=== PATIENT | male | born 1950 | race Caucasian/White ===

== ENCOUNTER 2020-09-28 15:53 | Observation (INO) | payer OTHER, SELFPAY ==
[2020-09-28] VITALS (9 sets, daily range): BP systolic 137–194; BP diastolic 73–101; PULSE 75–89; RESP 16–20; TEMP 36.8–37.5; O2SAT 93–99; BMI 26.3
[2020-09-28 17:28] LABS: Add Manual Diff / Slide Review NO; Basophils Absolute Auto 0 /uL (0-100); Basophils Percent Auto 0.2 % (0-2); Eosinophils Absolute Auto 0 /uL (0-450); Hematocrit 44.9 % (41-53); Lymphocytes Absolute Auto 800 /uL (1100-4500); Lymphocytes Percent Auto 5.1 % (25-40); Mean Corpuscular HGB Conc 33.5 % (30-36); Mean Corpuscular Hemoglobin 29.2 PG (26-34); Mean Corpuscular Volume 87.3 fL (80-100); Monocytes Absolute Auto 1500 /uL (0-900); Monocytes Percent Auto 9.4 % (3-14); Neutrophils Absolute Auto 13700 /uL (1500-7000); Neutrophils Percent Auto 85.3 % (50-75); Platelet Count 283 X10^3/uL (150-400); Red Blood Cell Count 5.14 X10^6/uL (4.5-5.9); Red Cell Distribution Width 13.3 % (11.6-14.8); White Blood Cell Count 16.1 X10^3/uL (4.5-11.0)
[2020-09-28 17:39] LABS: Alanine Aminotransferase 26 IU/L (<50); Albumin 4.6 g/dL (3.5-5.0); Albumin Globulin Ratio 1.3 (1.0-2.8); Alkaline Phosphatase 78 U/L (38-126); Aspartate Aminotransferase 32 IU/L (17-59); BUN Creatinine Ratio 21.9 (6-22); Bilirubin Total 0.8 mg/dL (0.2-1.3); Blood Urea Nitrogen 25 mg/dL (9-20); Calcium 9.7 mg/dL (8.4-10.2); Carbon Dioxide 28 mmol/L (22-32); Chloride 99 mmol/L (98-107); Estimated Glomerular Filt Rate > 60.0 mL/min (>60); Globulin 3.6 g/dL (1.7-4.1); Glucose 112 mg/dL (80-110); HEMOLYSIS 18 (0-50); Lipase 46 U/L (23-300); Potassium 3.9 mmol/L (3.4-5.1); Sodium 138 mmol/L (137-145); Total Protein 8.2 g/dL (6.3-8.2)
[2020-09-28 17:56] LABS: Procalcitonin 0.16 ng/mL (<0.5)
--- NOTE | 2020-09-28 18:47 | PC.NURSE ---
reports chronic ear wax impaction. usually resolves with hydrogen peroxide. tried this time with no success and awoke the next morning with painful left side of face and ear.
--- NOTE | 2020-09-28 18:57 | ED.SKABFB ---
HPI - Skin/Abscess/Foreign Bdy General Chief complaint: Skin/Abscess/Foreign Body Stated complaint: from [facility]/ facial cellulitis Time Seen by Provider: 09/28/20 18:04 Source: patient Mode of arrival: Ambulatory History of Present Illness HPI narrative: 70-year-old male former smoker with history of hyperlipidemia presents from the walk-in clinic for evaluation of a few days of increasing left-sided facial pain, redness, swelling and subjective fever. He states that his symptoms have been worsening over the past few days. He had some discomfort in his left ear and admits that he had been taking and scratching at it and then had it washed out in the clinic. In the aftermath he developed pain, swelling and redness. He has no difficulty with swallowing or breathing. He feels generally unwell and has nausea but denies any vomiting. He states that though he has had no drainage from his left ear he feels like it is plugged and is unable to hear out of it Related Data Home Medications Medication Instructions Recorded Confirmed acyclovir 400 mg tablet 400 mg PO BID 09/28/20 09/28/20 atorvastatin 20 mg tablet 20 mg PO DAILY 09/28/20 09/28/20 carisoprodol 350 mg tablet 350 mg PO BID tab 09/28/20 09/28/20 desonide 0.05 % topical cream 1 applic TOPICAL BID 09/28/20 09/28/20 duloxetine 60 mg capsule,delayed 60 mg PO DAILY 09/28/20 09/28/20 release gabapentin 300 mg capsule 900 mg PO BID cap 09/28/20 09/28/20 ibuprofen 800 mg tablet 800 mg PO Q8H 09/28/20 09/28/20 lisinopril 10 mg tablet 10 mg PO DAILY 09/28/20 09/28/20 oxycodone-acetaminophen 5 mg-325 1 tab PO Q8H PRN 09/28/20 09/28/20 mg tablet sildenafil (pulm.hypertension) 20 See Rx Instructions PO .prn tab 09/28/20 09/28/20 mg tablet Allergies Allergy/AdvReac Type Severity Reaction Status Date / Time Penicillins Allergy Intermediate Swelling Verified 09/28/20 16:01 of Lip/Tongue/Throat Review of Systems Review of Systems Narrative: GENERAL: See HP HEENT: See HPI RESPIRATORY: Denies dyspnea, cough, wheezing, hemoptysis, sputum. CARDIOVASCULAR: Denies chest pain, palpitations, orthopnea, edema, GASTROINTESTINAL: Denies nausea, vomiting, abdominal pain, diarrhea, constipation, melena. : Denies dysuria, frequency, incontinence, hematuria, urinary retention. MUSCULOSKELETAL: denies weakness, joint pain, or bony pain SKIN: See HPI NEUROLOGIC: Denies weakness, headache, numbness, change in speech, confusion, seizures, incoordination. PSYCHIATRIC: No concerning psychosocial issues. 12 point review of systems is negative except for those stated above Patient History Medical History Chronic low back pain HSV (herpes simplex virus) infection Hyperlipidemia Pulmonary hypertension Surgical History History of lumbar fusion History of lumbar laminectomy Family History Mother Cancer Father Congestive heart failure Social History household members: spouse Smoking Status: Former smoker alcohol intake: former Smoking Status: Former smoker Substance Use Type: marijuana Exam Narrative Exam Narrative: GENERAL: [70] year old patient appears stated age. Well-developed patient, in mild distress. HEAD: Atraumatic. Normocephalic. EYES: Pupils equal round and reactive. Extraocular motions intact. No scleral icterus. No injection or drainage. ENT: Nose without bleeding, purulent drainage. Throat without erythema, tonsillar hypertrophy or exudate. Airway patent. Left external auditory canal edematous, erythematous, but without drainage. External ear notably swollen, tender and edematous. No fluctuance or drainage noted much of the left side of his face demonstrates erythema and swelling, there is tenderness overlying the mastoid NECK: Trachea midline. Non tender CARDIOVASCULAR: Regular rate and rhythm without murmurs, gallops, or rubs. RESPIRATORY: Clear to auscultation. Breath sounds equal bilaterally. No wheezes, rales, or rhonchi. GASTROINTESTINAL: Abdomen soft, non-tender, nondistended. EXTREMITIES: No edema or joint tenderness. BACK: Nontender without deformity or crepitance. No flank tenderness. NEURO: AOx3. SKIN: No rash or erythema of visible areas Initial Vital Signs Initial Vital Signs: Vital Signs Temperature 98.3 F 09/28/20 15:57 Pulse Rate 89 09/28/20 15:57 Respiratory Rate 16 09/28/20 15:57 Pulse Oximetry 98 09/28/20 15:57 Course Orders Ordered: ED Orders 09/28/20 19:33 COVID19 - ADMIT (FERMENTATION MANAGER swab/PCR) Stat 09/28/20 21:08 Education, smoking cessation ONGOING 09/29/20 05:00 Basic Metabolic Panel DAILY Complete Blood Count AUTO DIFF DAILY 09/30/20 05:00 Basic Metabolic Panel DAILY Complete Blood Count AUTO DIFF DAILY 10/01/20 05:00 Basic Metabolic Panel DAILY Complete Blood Count AUTO DIFF DAILY Acetaminophen (Acetaminophen 325 Mg Tablet) 650 mg PO Q6HR PRN PRN Reason: Fever/Mild Pain (1-3) Acyclovir (Acyclovir 400 Mg Tablet) 400 mg PO BID [facility] Last Admin: 09/29/20 00:18 Dose: 400 mg Documented by: ALON Al Hydrox/Mg Hydrox/Simethicone (Mag Hydrox/Alum/Simeth 30 Ml Udc) 30 ml PO Q6HR PRN PRN Reason: Dyspepsia Atorvastatin Calcium (Atorvastatin 20 Mg Tablet) 20 mg PO DAILY [facility] Carisoprodol (Carisoprodol 350 Mg Tablet) 350 mg PO BID [facility] Last Admin: 09/29/20 00:19 Dose: 350 mg Documented by: ALON Duloxetine HCl (Duloxetine 30 Mg Capsule) 60 mg PO DAILY [facility] Enoxaparin Sodium (Enoxaparin 40 Mg/0.4 Ml Syringe) 40 mg SUBCUT DAILY [facility] Gabapentin (Gabapentin 300 Mg Capsule) 900 mg PO BID [facility] Last Admin: 09/29/20 00:18 Dose: 900 mg Documented by: ALON Lactated Ringer's (Lactated Ringers) 1,000 mls @ 125 mls/hr IV CONT [facility] Last Admin: 09/28/20 22:18 Dose: 125 mls/hr Documented by: KELVIN Ceftriaxone Sodium 1,000 mg/ (Sodium Chloride) 100 mls @ 200 mls/hr IV Q24H [facility] Ketorolac Tromethamine (Ketorolac 30 Mg/Ml Vial) 15 mg IV Q6HR PRN PRN Reason: Pain, Severe (7-10) Stop: 10/03/20 21:10 Lisinopril (Lisinopril 10 Mg Tablet) 10 mg PO DAILY [facility] Naloxone HCl (Naloxone 0.4 Mg/Ml Vial) 0.2 mg IV Q2MIN PRN PRN Reason: Opiate Reversal Ondansetron HCl (Ondansetron 4 Mg/2 Ml Inj) 4 mg IV Q8HR PRN PRN Reason: Nausea And Vomiting Oxycodone HCl (Oxycodone Ir 5 Mg Tablet) 5 mg PO Q6HR PRN PRN Reason: Pain, Moderate (4-6) Last Admin: 09/28/20 22:40 Dose: 5 mg Documented by: KELVIN Oxycodone/Acetaminophen (Oxycodone/Acetaminophen 5/325 Tablet) 1 tab PO Q8H PRN PRN Reason: Pain (Scale Score 4-6) Prednisone (Prednisone 20 Mg Tablet) 40 mg PO DAILY [facility] Stop: 10/02/20 08:59 Sildenafil Citrate (Sildenafil 20 Mg Tablet) 20 mg PO BID [facility] Last Admin: 09/29/20 00:24 Dose: Not Given Documented by: LMILLER Discontinued Medications Hydromorphone HCl (Hydromorphone 1 Mg Inj) 1 mg IV NOW ONE Stop: 09/28/20 21:16 Last Admin: 09/28/20 21:26 Dose: 1 mg Documented by: CTR.LUL Aztreonam 2 gm/ Dextrose 100 mls @ 100 mls/hr IV NOW ONE Stop: 09/28/20 19:09 Last Infusion: 09/28/20 21:06 Dose: 0 mls/hr Documented by: [email or web address] Admin: 09/28/20 19:55 Dose: 100 mls/hr Documented by: CTR.[email or web address] Clindamycin Phosphate (Cleocin) 600 mg in 50 mls @ 50 mls/hr IV Q8H [facility] Last Admin: 09/28/20 22:50 Dose: Not Given Documented by: LVRHONDA Ceftriaxone Sodium 2,000 mg/ (Sodium Chloride) 100 mls @ 200 mls/hr IV NOW ONE Stop: 09/28/20 22:12 Last Admin: 09/28/20 22:44 Dose: 200 mls/hr Documented by: KELVIN Ketorolac Tromethamine (Ketorolac 30 Mg/Ml Vial) 30 mg IV Q6HR PRN PRN Reason: Pain, Severe (7-10) Stop: 10/03/20 21:10 Methylprednisolone (Methylprednisolone 125 Mg/2 Ml Vial) 40 mg IV NOW ONE Stop: 09/28/20 21:12 Last Admin: 09/28/20 22:19 Dose: 40 mg Documented by: KELVIN Tesfaye Consultation #1: Discussed with on-call [facility], they would recommend admission with IV antibiotics, hold off on imaging for now, if the patient does not demonstrate improvement within 24 hours they request formal inpatient consultation and they will see the patient for further treatment and imaging recommendations. Vital Signs Vital signs: Vital Signs - 8 hr 09/28/20 19:33 09/28/20 19:36 09/28/20 20:00 Pulse Rate 75 75 75 Blood Pressure 160/101 H Pulse Oximetry 99 97 98 09/28/20 20:01 09/28/20 20:30 09/28/20 21:00 Pulse Rate 79 76 78 Blood Pressure 137/73 Pulse Oximetry 97 96 95 MDM - Skin/Abscess/Foreign Bdy Lab Data Result diagrams: 09/28/20 17:02 09/28/20 17:02 Labs: Lab Results 09/28/20 09/28/20 09/28/20 Range/Units 17:00 17:02 17:02 WBC 16.1 H (4.5-11.0) X10^3/uL RBC 5.14 (4.5-5.9) X10^6/uL Hgb 15.0 (13.5-17.5) g/dL Hct 44.9 (41-53) % MCV 87.3 (80-100) fL MCH 29.2 (26-34) PG MCHC 33.5 (30-36) % RDW 13.3 (11.6-14.8) % Plt Count 283 (150-400) X10^3/uL Neut % (Auto) 85.3 H (50-75) % Lymph % (Auto) 5.1 L (25-40) % [place] % (Auto) 9.4 (3-14) % Eos % (Auto) 0.0 L (2-4) % Baso % (Auto) 0.2 (0-2) % Neut # (Auto) 86896 H (2522-2399) /uL Lymph # (Auto) 800 L (5838-4511) /uL [place] # (Auto) 1500 H (0-900) /uL Eos # (Auto) 0 (0-450) /uL Baso # (Auto) 0 (0-100) /uL Sodium 138 (137-145) mmol/L Potassium 3.9 (3.4-5.1) mmol/L Chloride 99 (98-107) mmol/L Carbon Dioxide 28 (22-32) mmol/L BUN 25 H (9-20) mg/dL Creatinine 1.14 (0.66-1.25) mg/dL Estimated GFR > 60.0 (>60) mL/min BUN/Creatinine Ratio 21.9 (6-22) Glucose 112 H (80-110) mg/dL Lactate (0.7-2.1) mmol/L Calcium 9.7 (8.4-10.2) mg/dL Magnesium 2.0 (1.6-2.3) mg/dL Total Bilirubin 0.8 (0.2-1.3) mg/dL AST 32 (17-59) IU/L ALT 26 (<50) IU/L Alkaline Phosphatase 78 (38-126) U/L Total Protein 8.2 (6.3-8.2) g/dL Albumin 4.6 (3.5-5.0) g/dL Globulin 3.6 (1.7-4.1) g/dL Albumin/Globulin Ratio 1.3 (1.0-2.8) Lipase 46 (23-300) U/L Procalcitonin 0.16 (<0.5) ng/mL SARS-CoV-2 (PCR) (Negative) 09/28/20 09/28/20 Range/Units 17:02 19:33 WBC (4.5-11.0) X10^3/uL RBC (4.5-5.9) X10^6/uL Hgb (13.5-17.5) g/dL Hct (41-53) % MCV (80-100) fL MCH (26-34) PG MCHC (30-36) % RDW (11.6-14.8) % Plt Count (150-400) X10^3/uL Neut % (Auto) (50-75) % Lymph % (Auto) (25-40) % [place] % (Auto) (3-14) % Eos % (Auto) (2-4) % Baso % (Auto) (0-2) % Neut # (Auto) (0893-3597) /uL Lymph # (Auto) (4470-5945) /uL [place] # (Auto) (0-900) /uL Eos # (Auto) (0-450) /uL Baso # (Auto) (0-100) /uL Sodium (137-145) mmol/L Potassium (3.4-5.1) mmol/L Chloride (98-107) mmol/L Carbon Dioxide (22-32) mmol/L BUN (9-20) mg/dL Creatinine (0.66-1.25) mg/dL Estimated GFR (>60) mL/min BUN/Creatinine Ratio (6-22) Glucose (80-110) mg/dL Lactate 2.0 (0.7-2.1) mmol/L Calcium (8.4-10.2) mg/dL Magnesium (1.6-2.3) mg/dL Total Bilirubin (0.2-1.3) mg/dL AST (17-59) IU/L ALT (<50) IU/L Alkaline Phosphatase (38-126) U/L Total Protein (6.3-8.2) g/dL Albumin (3.5-5.0) g/dL Globulin (1.7-4.1) g/dL Albumin/Globulin Ratio (1.0-2.8) Lipase (23-300) U/L Procalcitonin (<0.5) ng/mL SARS-CoV-2 (PCR) Negative (Negative) Discharge Plan Departure Patient Disposition: Admitted as Observation Clinical Impression: Cellulitis of face, Otitis externa Admit Date/Time: 09/28/20 21:16 Admit Provider: Alicia Kenney
[2020-09-28] MEDS: AZTREONAM 2 GM in DEXTROSE 5 % IN WATER 100 ML IV (19:55)
[2020-09-28 20:52] LABS: COVID19 - ADMIT (NP swab/PCR) Negative (Negative)
[2020-09-28] MEDS: HYDROMORPHONE 1 MG INJ IV (21:26)
--- NOTE | 2020-09-28 21:53 | PM.HP.1 ---
History of Present Illness History of Present Illness Date Patient Seen: 09/28/20 Time Patient Seen: 21:54 Chief complaint: from [facility]/ facial cellulitis Narrative: Patient is a 70-year-old male Richard Bee presented to the walk-in clinic who inturn was sent to the ED for further evaluation of 48hrs of increasing redness, pain, and edema of left side of face, mastoid, and ear. Patient states that he spent all of send a icing his face and taking ibuprofen Patient denies upon admit while at rest in bed chest pain, shortness of breath, difficulty swallowing, fever, body aches, chills, pain behind the eyes, pain with eye movement, changes in vision, dizziness, cough, nasal drainage, recent illness, injury, trauma, no urinary or bowel concerns. Patient is a very physically fit male, with a history of hyperlipidemia, pulmonary hypertension, HSV II, peripheral neuropathy, and chronic low back pain. Patient's vitals upon admit patient had no temp at 98.3?, but was hypertensive with a BP 160/101, HR 75, RR 16, O2 saturation 97% on room air. Patient had a mild bump in his WBC 16.1, neutrophils 13,700. Patient's chemistries were primarily unremarkable and within normal limits, lactic acid, and procalcitonin negative. ENT was consulted in the emergency room by Dr. Tamayo, it was advised that patient be admitted for IV antibiotics fluids and anti-inflammatories and that if patient's condition is worsening and not improving after 24 hours of treatment to obtain and mastoid imaging an order ENT consult. Patient admitted for left sided facial/mastoid cellulitis/abscess. 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 Safety & Behavioral: Feels Safe in Current Yes Environment Been Physically Hurt or No Threatened By a Person Suicidal Ideation Description None Suicide Plan Description No Plan Tobacco & Substance use: Smoking Status Former smoker smoked for 20 years, quit 30 years ago alcohol intake former history of alcohol abuse quit 30 years ago Substance Use Type ICB oil only for pain Meds Home Medications and Allergies Home Medications Medication Instructions Recorded Confirmed Type acyclovir 400 mg tablet 400 mg PO BID 09/28/20 09/28/20 History atorvastatin 20 mg tablet 20 mg PO DAILY 09/28/20 09/28/20 History carisoprodol 350 mg tablet 350 mg PO BID tab 09/28/20 09/28/20 History desonide 0.05 % topical cream 1 applic TOPICAL BID 09/28/20 09/28/20 History duloxetine 60 mg capsule,delayed 60 mg PO DAILY 09/28/20 09/28/20 History release gabapentin 300 mg capsule 900 mg PO BID cap 09/28/20 09/28/20 History ibuprofen 800 mg tablet 800 mg PO Q8H 09/28/20 09/28/20 History lisinopril 10 mg tablet 10 mg PO DAILY 09/28/20 09/28/20 History oxycodone-acetaminophen 5 mg-325 1 tab PO Q8H PRN 09/28/20 09/28/20 History mg tablet sildenafil (pulm.hypertension) 20 See Rx Instructions PO .prn tab 09/28/20 09/28/20 History mg tablet Allergies Allergy/AdvReac Type Severity Reaction Status Date / Time Penicillins Allergy Intermediate Swelling Verified 09/28/20 16:01 of Lip/Tongue/Throat Review of Systems Review of Systems Narrative: All 12 point systems reviewed with the patient and are negative except otherwise documented. Exam Vital Signs (past 8 hours): - 09/28/20 15:57 09/28/20 19:33 09/28/20 19:36 Temperature 98.3 F Pulse Rate 89 75 75 Respiratory Rate 16 Blood Pressure 160/101 H Pulse Oximetry 98 99 97 09/28/20 20:00 09/28/20 20:01 09/28/20 20:30 Temperature Pulse Rate 75 79 76 Respiratory Rate Blood Pressure 137/73 Pulse Oximetry 98 97 96 09/28/20 21:00 Temperature Pulse Rate 78 Respiratory Rate Blood Pressure Pulse Oximetry 95 Oxygen Delivery Method Room Air Narrative Exam Narrative: General: Patient is a well-developed, well-nourished fit male who appears younger than stated age in no distress at this time. HEENT: Normocephalic, atraumatic, extraocular muscles intact, oral pharynx is clear, airway protected, and mucous membranes are moist. Left side of face and parietal scalp mild inflammation with gross erythema, warm to touch, cheek, ear, mastoid with marked greater erythema, tenderness, and mild edema. Positive preauricular greater over post auricular lymphadema & tendereness. Unable to visualize left canal/TM to do swelling. Ears: external ear abnormal (L ear) pain with movement of external ear Neck is supple and symmetric, trachea is midline,no thyroid enlargement,no masses palpated. Mild bilateral JVD Chest: Normal AP diameter and contour without kyphoscoliosis, no nasal flaring, retractions, or tachypneic labored Lungs: Auscultation of all lung henao are clear without adventitious sounds, wheezes, rhonchi, or rales. Cardio: S1 & S2 with regular rate and rhythm without murmur, rubs, or gallops, no carotid bruit, no cardiac pulsations present. Abdomen: Soft nontender, negative for organomegaly, or masses. Bowel sounds are present in all 4 quadrants without guarding or rebound, no CVA tenderness. Musculoskeletal: Muscle strength and tone are equal within normal limits, no deformity, crepitus, effusions, cyanosis, clubbing or edema present. Full range of motion intact radial and pedal pulses are normal. Skin: Warm dry and intact without rashes, ulcerations or petechiae. with the exception of above Please refer to HEENT Neuro: Alert and orientated x3, strength is +5/5 in all extremities, sensation to touch intact, no gross deficits noted of cranial nerves. Psych: Patient has a well-kept appearance, appropriate affect, mental status attitude thought context and judgment are appropriate for age. Objective Labs Result Diagrams: 09/28/20 17:02 09/28/20 17:02 Labs: Laboratory Results - last 24 hr 09/28/20 09/28/20 09/28/20 17:00 17:02 17:02 WBC 16.1 H RBC 5.14 Hgb 15.0 Hct 44.9 MCV 87.3 MCH 29.2 MCHC 33.5 RDW 13.3 Plt Count 283 Neut % (Auto) 85.3 H Lymph % (Auto) 5.1 L [place] % (Auto) 9.4 Eos % (Auto) 0.0 L Baso % (Auto) 0.2 Neut # (Auto) 04137 H Lymph # (Auto) 800 L [place] # (Auto) 1500 H Eos # (Auto) 0 Baso # (Auto) 0 Sodium 138 Potassium 3.9 Chloride 99 Carbon Dioxide 28 BUN 25 H Creatinine 1.14 Estimated GFR > 60.0 BUN/Creatinine Ratio 21.9 Glucose 112 H Lactate Calcium 9.7 Magnesium 2.0 Total Bilirubin 0.8 AST 32 ALT 26 Alkaline Phosphatase 78 Total Protein 8.2 Albumin 4.6 Globulin 3.6 Albumin/Globulin Ratio 1.3 Lipase 46 Procalcitonin 0.16 SARS-CoV-2 (PCR) 09/28/20 09/28/20 17:02 19:33 WBC RBC Hgb Hct MCV MCH MCHC RDW Plt Count Neut % (Auto) Lymph % (Auto) [place] % (Auto) Eos % (Auto) Baso % (Auto) Neut # (Auto) Lymph # (Auto) [place] # (Auto) Eos # (Auto) Baso # (Auto) Sodium Potassium Chloride Carbon Dioxide BUN Creatinine Estimated GFR BUN/Creatinine Ratio Glucose Lactate 2.0 Calcium Magnesium Total Bilirubin AST ALT Alkaline Phosphatase Total Protein Albumin Globulin Albumin/Globulin Ratio Lipase Procalcitonin SARS-CoV-2 (PCR) Negative Assessment & Plan Assessment & Plan narrative: Patient is a 70-year-old male Richard pritesh [facility] presented with a few days of increasing redness, swelling, pain, and edema of left side of face, mastoid, and ear. Patient has a history of hyperlipidemia, pulmonary hypertension, Parkinson's, HSV, peripheral neuropathy. Patient admitted for left sided facial/mastoid cellulitis/abscess. 1. Left-sided facial cellulitis/abscess/mastoiditis/left otitis media/externa, acute, present on admission-stable, airway protected -rule out otitis media with effusion, bullous myringits, external otitis, herpes zoster, deep space head/neck infection, mastoiditis, dental infection. -possibly an exacerbation of otitis media with effusion with otitis externa- due to the greater left pre-auricular lymphedema. -monitor for hyponatremia elevated CPK or AST -BP 160/101, HR 75, RR 16, O2 saturation 97% on room air. WBC 16.1, neutrophils 13,700. lactic acid,procalcitonin negative. -ENT was consulted in the emergency room by Dr. Tamayo, it was advised that patient be admitted for IV antibiotics fluids and anti-inflammatories and that if patient's condition is worsening and not improving after 24 hours of treatment: obtain mastoid imaging an order ENT consult. Patient admitted for IV antibiotic in fluid treatment due to increase risk of airway compromise, acute respiratory distress/respiratory arrest. -Sofa score:0 -patient for observation, vital signs q.4 hours, intake and output monitored Q shift, weight measure daily, diet: Regular, IV fluids: LR at 125 cc/hour. -MEDS:Aztrenonam in ED due to PCN allergy, patient does not have a cephalosporin or beta-lactam allergy patient placed on Rocephin 2 g now followed by 1 g Q 24 hours -bedside swallow, aspiration precautions, monitor airway status, apply ice as needed for inflammation &/or comfort -ordered 40 mg IV Solu-Medrol now followed by 40 mg oral prednisone q.day x3 days -manage patient's swelling with anti-inflammatories, pain management, and antiemetics for nausea -daily labs ordered CBC, CMP, PT INR. Procalcitonin, ESR, CRP in Qam 2. Pulmonary hypertension, acute on chronic, present on admission Continue patient's lisinopril, sildenafil 3. Chronic low back pain, chronic, present on admission -continue the patient's Carisoprodol, duloxetine, gabepentin 4. HSV II genital, chronic, present on admission -Continue patient's acyclovir Code status: DNR Surrogate decisionmaker: Gila Bee COVID PCR: Negative DVT/VTE prophylaxis: Lovenox 40 with SCDs Estimated length of stay: Less than 2 midnights I have utilized all available immediate resources to obtain, update, or review the patient's current medications. I confirmed that the patient's advanced care plan is present, Code status is documented and/or surrogate decision maker is listed in the patient's medical record. Scores GCS Teressa coma scale eye opening: Spontaneous [place] coma scale verbal response: Orientated [place] coma scale motor response: Obey commands [place] coma scale total score: 15 SOFA PaO2/FIO2: >=400 mmHg Platelets: >= 150 Bilirubin: < 1.2 mg/dL Hypotension: MAP >= 70 mmHg [place] Coma Scale: 15 Renal: < 1.2 mg/dL SOFA Score: 0 Wells' Criteria for PE Clinical signs and symptoms of DVT: No PE is #1 Dx or equally likely: No Heart rate > 100: No Immobilization at least 3 days or surg in previous 4 weeks: No History of PE or DVT: No Hemoptysis: No Malignancy w/Treatment within 6 months or palliative: No Wells' PE Score total: 0 Quality VTE Deep Vein Thrombosis/Pulmonary Embolism Present on Admission: No MIPS - Admit I confirm the patient?s Advance Care Plan is present, Code status is documented, Surrogate decision maker is in patient?s record [If Yes, STOP here]: Yes
[2020-09-28] MEDS: LACTATED RINGERS 1,000 ML 125 ML IV (22:18)
[2020-09-28] MEDS: methylPREDNISolone 125 MG/2 ML VIAL 40 MG IV (22:19)
[2020-09-28] MEDS: OXYCODONE IR 5 MG TABLET PO (22:40)
[2020-09-28] MEDS: cefTRIAXone 2,000 MG in SODIUM CHLORIDE 0.9% 100 ML 200 ML IV (22:44)
[2020-09-29] VITALS (7 sets, daily range): BP systolic 131–149; BP diastolic 66–79; PULSE 70–74; RESP 16–18; TEMP 36.6–37.5; O2SAT 94–97
[2020-09-29] MEDS: ACYCLOVIR 400 MG TABLET PO (00:18)
[2020-09-29] MEDS: GABAPENTIN 300 MG CAPSULE 900 MG PO ×2 (00:18→09:59)
[2020-09-29] MEDS: carisoprodoL 350 MG TABLET PO ×2 (00:19→09:54)
[2020-09-29 06:00] LABS: Add Manual Diff / Slide Review NO; Basophils Absolute Auto 0 /uL (0-100); Basophils Percent Auto 0.1 % (0-2); Eosinophils Absolute Auto 0 /uL (0-450); Hematocrit 40.3 % (41-53); Hemoglobin 13.4 g/dL (13.5-17.5); Lymphocytes Absolute Auto 500 /uL (1100-4500); Lymphocytes Percent Auto 3.8 % (25-40); Mean Corpuscular HGB Conc 33.2 % (30-36); Mean Corpuscular Hemoglobin 28.6 PG (26-34); Mean Corpuscular Volume 86.2 fL (80-100); Monocytes Absolute Auto 200 /uL (0-900); Monocytes Percent Auto 1.6 % (3-14); Neutrophils Absolute Auto 12600 /uL (1500-7000); Neutrophils Percent Auto 94.5 % (50-75); Platelet Count 269 X10^3/uL (150-400); Red Blood Cell Count 4.67 X10^6/uL (4.5-5.9); White Blood Cell Count 13.3 X10^3/uL (4.5-11.0)
[2020-09-29] MEDS: LACTATED RINGERS 1,000 ML 125 ML IV (06:12)
[2020-09-29] MEDS: OXYCODONE IR 5 MG TABLET PO (06:16)
[2020-09-29 06:17] LABS: BUN Creatinine Ratio 25.9 (6-22); Blood Urea Nitrogen 21 mg/dL (9-20); Calcium 9.1 mg/dL (8.4-10.2); Carbon Dioxide 27 mmol/L (22-32); Chloride 99 mmol/L (98-107); Estimated Glomerular Filt Rate > 60.0 mL/min (>60); Glucose 147 mg/dL (80-110); HEMOLYSIS < 15 (0-50); Potassium 4.2 mmol/L (3.4-5.1); Sodium 135 mmol/L (137-145)
[2020-09-29 06:21] LABS: Erythrocyte Sedimentation Rate 24 MM/HR (0-15)
[2020-09-29 06:29] LABS: Procalcitonin 0.14 ng/mL (<0.5)
[2020-09-29 06:58] LABS: C-Reactive Protein Quant 14.8 mg/dL (<1.0)
[2020-09-29] MEDS: ENOXAPARIN 40 MG/0.4 ML SYRINGE SUBCUT (09:52)
[2020-09-29] MEDS: predniSONE 20 MG TABLET 40 MG PO (09:53)
[2020-09-29] MEDS: ATORVASTATIN 20 MG TABLET PO (09:53)
[2020-09-29] MEDS: DULOXETINE 30 MG CAPSULE 60 MG PO (09:53)
[2020-09-29] MEDS: KETOROLAC 30 MG/ML VIAL 15 MG IV (10:17)
[2020-09-29] MEDS: SILDENAFIL 20 MG TABLET PO (10:17)
--- NOTE | 2020-09-29 12:24 | CM.DANOTE ---
DCP/Assessment: Reviewed chart. Patient is a 70yr old male admitted to [facility] with facial cellulitis. No PCP listed. Primary payor is 1)[facility]. Met with patient and spouse explained CM/SW role. Patient denies any d/c planning needs at this time. Patient seen by provider this AM and it is anticipated that he will d/c once IV abx completed. It is expected that patient will go out on po antibiotics. Patient and spouse report no needs. Patient has outpatient appointment scheduled tomorrow with ENT. P: Home when stable. MAT Hendrickson Discharge Planning/Care Management CM Discharge Assessment Start: 09/29/20 12:21 Freq: Status: Active Protocol: Document 09/29/20 12:21 KJS (Rec: 09/29/20 12:24 KJS [id number]) Discharge Planning Assessment Assigned Dress Marker MAT Hendrickson Contact Information Alona Bee (spouse) ph# [phone] Advance Directives? Yes Advance Directives on File Yes History Provided By Patient,Medical Record Prior Living Arrangements House Household Members spouse Type of transporation used prior to Drives own vehicle admit Independent with ADL's Yes Is patient alert and oriented? Yes Caregiver for Another No Barriers to Discharge No Transportation Arrangement Family to provide transport. Referrals Initiated None needed Whiteboard Updated in Patient Room with Yes name and ext. # of Dress Marker Review Status In Process Next Review Type Continued Stay Review
--- NOTE | 2020-09-29 13:22 | P.DS_ITS ---
History of Present Illness History of Present Illness Chief complaint: from [facility]/ facial cellulitis Narrative: Per Alicia Kenney: Patient is a 70-year-old male Richard Bee presented to the walk-in clinic who inturn was sent to the ED for further evaluation of 48hrs of increasing redness, pain, and edema of left side of face, mastoid, and ear. Patient states that he spent all of send a icing his face and taking ibuprofen Patient denies upon admit while at rest in bed chest pain, shortness of breath, difficulty swallowing, fever, body aches, chills, pain behind the eyes, pain with eye movement, changes in vision, dizziness, cough, nasal drainage, recent illness, injury, trauma, no urinary or bowel concerns. Patient is a very physically fit male, with a history of hyperlipidemia, pulmonary hypertension, HSV II, peripheral neuropathy, and chronic low back pain. Patient's vitals upon admit patient had no temp at 98.3?, but was hypertensive with a BP 160/101, HR 75, RR 16, O2 saturation 97% on room air. Patient had a mild bump in his WBC 16.1, neutrophils 13,700. Patient's chemistries were primarily unremarkable and within normal limits, lactic acid, and procalcitonin negative. ENT was consulted in the emergency room by Dr. Tamayo, it was advised that patient be admitted for IV antibiotics fluids and anti-inflammatories and that if patient's condition is worsening and not improving after 24 hours of treatment to obtain and mastoid imaging an order ENT consult. Patient admitted for left sided facial/mastoid cellulitis/abscess. Discharge Providers Provider Date of admission: 09/28/20 21:16 Discharge Date: 09/29/20 Discharge provider: Norm Jeffery MD Summary Hospital Course Discharge Diagnosis: 1. Left sided facial cellulitis 2. Pulmonary hypertension 3. Chronic back pain Hospital Course: Mr. Bee was admitted with a left sided facial cellulitis. He had no eye involvement. He had no oral involvement. Per patient and family his symptoms originated in his left ear. He had no significant pain or swelling on discharge. His erythema was much improved. His cultures were no growth to date. ENT was consulted by the ED and said if improving then to discharge on antibiotics. He will be discharged on ciprofloxacin due to concern for source originating of his ear. He has follow up the day after discharge with ENT. Exam Vital Signs (past 8 hours): Oxygen Delivery Method Room Air Oxygen Flow Rate 0 Narrative Exam Narrative: General: no acute distress HEENT: Left side of face scalp with erythema and warmth with red left ear. No swelling on mastoid. Mild tenderness preauricular area. Ears: external ear abnormal pain with movement of external ear Lungs: clear bilaterally Cardio: regular rate and rhythm without murmurs Abdomen: Soft nontender, nondistended. no organomegaly. normal bowel sounds Musculoskeletal: moving all extremities Skin: rash on face as described Neuro: alert and oriented Objective Labs Result Diagrams: 09/29/20 05:40 09/29/20 05:40 [facility] Medical History Chronic low back pain HSV (herpes simplex virus) infection Hyperlipidemia Pulmonary hypertension Surgical History History of lumbar fusion History of lumbar laminectomy Family History Mother Cancer Father Congestive heart failure Social History household members: spouse Smoking Status: Former smoker alcohol intake: former Discharge Plan Discharge Plan Patient Disposition: Home Provider Discharge Comment: Mr. Bee was admitted with an infection. It in volved his ear and spread to nearby skin. He was started on IV antibiotics and did well. He will be switched to oral antibiotics. He should follow up with his ENT, which he has an appointment tomorrow. Discharge orders & Medications Prescriptions: New ciprofloxacin HCl 500 mg tablet 500 mg PO BID Qty: 14 RF: 0 Continued ibuprofen 800 mg tablet 800 mg PO Q8H RF: 0 atorvastatin 20 mg tablet 20 mg PO DAILY RF: 0 oxycodone-acetaminophen 5-325 mg tablet 1 tab PO Q8H PRN (Reason: Pain (Scale Score 4-6)) RF: 0 desonide 0.05 % cream 1 applic topical BID RF: 0 acyclovir 400 mg tablet 400 mg PO BID RF: 0 carisoprodol 350 mg tablet 350 mg PO BID RF: 0 sildenafil (pulm.hypertension) 20 mg tablet See Rx Instructions PO .prn RF: 0 duloxetine 60 mg capsule,delayed release(DR/EC) 60 mg PO DAILY RF: 0 lisinopril 10 mg tablet 10 mg PO DAILY RF: 0 gabapentin 300 mg capsule 900 mg PO BID RF: 0 Follow up/Referrals: Miscellaneous,Doctor, [Non-Staff] - Diet/Activity/Treatments Diet: Regular Skin/Wound/Dressing Care Report to your healthcare provider any signs of infection, such as:: chills, fever, increased pain, unusual drainage and unusual redness Discharge Data Attending Provider: Alicia Kenney VTE Deep Vein Thrombosis/Pulmonary Embolism Present on Admission: No MIPS - DC The patient has current or prior documentation of left ventricular ejection fraction (LVEF) less than 40%, or moderate or severely depressed left ventricular systolic function.: No
--- NOTE | 2020-09-29 14:01 | PC.NURSE ---
A&Ox4, VSS, IV removed. Discharge packet reviewed, questions answered. Off of unti at 13:45.
--- NOTE | 2020-10-06 14:00 | PC.NURSE ---
Late Entry; Ceftriaxone infusion initiated 09/28 at 22:44 complete at 23:15.
== END 2020-09-29 13:45 | disposition home or self-care (01) ==
LOC: ED 19:42 → AC 21:17
PROVIDERS: Emergency Medicine; Admitting Provider Nurse Practitioner Family; Emergency Provider Emergency Medicine; Visit Provider Nurse Practitioner Family
DX: L03.211 Cellulitis of face (principal); I27.20 Pulmonary hypertension, unspecified; M54.9 Dorsalgia, unspecified; G89.29 Other chronic pain; Z20.822 Contact with and (suspected) exposure to COVID-19
CPT/HCPCS: 36415; 80048; 80053; 83605; 83690; 83735; 84145; 85025; 85651; 86140; 87040; 87635; 96365; 96367; 96372; 96375; 99284; C9803; G0378; S0073; J0696; J1170; J1650; J1885; J2930

== ENCOUNTER 2023-10-17 02:12 | Emergency (ER) | payer OTHER, SELFPAY ==
[2020-09-28 21:39] VITALS: BMI 26.3
[2023-10-17 02:21] VITALS: BP 146/73; PULSE 75; RESP 16; TEMP 36.5; O2SAT 96; BMI 29.2
--- NOTE | 2023-10-17 02:47 | ED.WOUNDLAC ---
HPI - Wound/Laceration General Chief Complaint: Wound/Laceration Stated Complaint: fall, hit edge of table head wound Time Seen by Provider: 10/17/23 02:29 Source: patient Mode of arrival: Ambulatory History of Present Illness HPI narrative: 73-year-old gentleman with a history of hyperlipidemia, hypertension who was having a fantastic dream where he was doing flips with a skateboard woke up lot of bed and hit the crown of his head on the bedside table. He is suffered 4 cm questions shaped full-thickness laceration to the crown. There was no loss of consciousness. He did land on his elbow on a carpeted floor is not complaining of any pain with full range of motion of the elbow. Bleeding has been controlled. Comes in for further evaluation Related Data Home Medications Medication Instructions Recorded Confirmed acyclovir 400 mg tablet 400 mg PO BID 09/28/20 09/28/20 atorvastatin 20 mg tablet 20 mg PO DAILY 09/28/20 09/28/20 carisoprodol 350 mg tablet 350 mg PO BID 09/28/20 09/28/20 desonide 0.05 % topical cream 1 applic topical BID 09/28/20 09/28/20 duloxetine 60 mg capsule,delayed 60 mg PO DAILY 09/28/20 09/28/20 release gabapentin 300 mg capsule 900 mg PO BID 09/28/20 09/28/20 ibuprofen 800 mg tablet 800 mg PO Q8H 09/28/20 09/28/20 lisinopril 10 mg tablet 10 mg PO DAILY 09/28/20 09/28/20 oxycodone-acetaminophen 5 mg-325 1 tab PO Q8H PRN Pain (Scale Score 09/28/20 09/28/20 mg tablet 4-6) sildenafil (pulm.hypertension) 20 See Rx Instructions PO .prn 09/28/20 09/28/20 mg tablet Previous Rx's Medication Instructions Recorded ciprofloxacin HCl 500 mg tablet 500 mg PO BID #14 tabs 09/29/20 Allergies Allergy/AdvReac Type Severity Reaction Status Date / Time Penicillins Allergy Severe Swelling Verified 09/29/20 09:15 of Lip/Tongue/Throat Review of Systems Review of Systems Narrative: Pertinent positive and negative findings as per HPI Patient History Medical History Chronic low back pain HSV (herpes simplex virus) infection Hyperlipidemia Pulmonary hypertension Surgical History History of lumbar laminectomy History of lumbar fusion Family History Mother Cancer Father Congestive heart failure Social History household members: spouse Smoking Status: Former smoker alcohol intake: former Smoking Status: Former smoker Substance Use Type: marijuana Exam Initial Vital Signs Initial Vital Signs: Vital Signs Temperature 97.7 F 10/17/23 02:21 Pulse Rate 75 10/17/23 02:21 Respiratory Rate 16 10/17/23 02:21 Blood Pressure 146/73 H 10/17/23 02:21 Pulse Oximetry 96 10/17/23 02:21 Oxygen Delivery Method Room Air 10/17/23 02:21 General: Healthy appearing, in no acute distress. Able to give a complete and coherent history. Well-nourished well-developed HEENT: Moist mucous membranes, normal sclera with reactive pupils, 5 cm crescent shape laceration to the crown of the head. No significant contusion or abrasion bleeding is controlled. Neck: No cervical spine tenderness Respiratory: Full and symmetrical air movement Cardiac: Regular rate and rhythm no murmurs no bruits Skin: Warm and dry, no rashes Neurologic: Grossly neurologically intact with no obvious asymmetries or abnormalities Extremities: No trauma, well perfused Psych: Cooperative, appropriate insight and affect Course Orders Ordered: Discontinued Medications Lidocaine HCl (Lidocaine 1% 20 Ml) 20 ml INJ INTRA-OP ONE Stop: 10/17/23 02:34 Vital Signs Vital signs: Vital Signs - 8 hr 10/17/23 02:21 Temperature 97.7 F Pulse Rate 75 Respiratory Rate 16 Blood Pressure 146/73 H Pulse Oximetry 96 Oxygen Delivery Method Room Air MDM - Wound/Laceration MDM Narrative Medical decision making narrative: CC: Fell out of bed with laceration to the crown head Complicating co-morbidities: Hypertension, hyperlipidemia Data collected from: patient, Differential considered: Syncope, seizure, intracranial hemorrhage, cervical spine injury, additional Trauma from landing on the carpeted floor Exam documented above, pertinent findings include: Simple questions shape laceration. No other concerns Procedure/ Treatments: Area is cleaned, anesthetized with 3 cc of lidocaine without epinephrine. It was irrigated with saline through the entire extent of the wound. The wound is clean, edges did not need to be revised. Five astrid were used to reapproximate edges with excellent hemostasis and aesthetics. No dressing is required Discussion: 73-year-old gentleman with 5 cm laceration to the crown of his head with no other injuries. Stapled without complication. He tolerated the procedure well. No indication for additional imaging, lab work or hospitalization. Questions are answered. Recommended astrid be removed on or about October 26. He is safe for discharge Discharge Plan Departure Patient Disposition: Home Clinical Impression: Laceration Instructions: DI for Laceration Repair Activity Restrictions/Additional Instructions: Thank you for coming in tonight I am sorry you did not complete your flip and stick the landing. I am glad in fact it did give me a chance to meet you. Five astrid were used to close the wound. This should heal nicely. If there is any increasing pain drainage new symptoms or findings or additional concerns you do need to be re-evaluated The 5 astrid need to be removed on or about October 26 Prescriptions: No Action ibuprofen 800 mg tablet 800 mg PO Q8H atorvastatin 20 mg tablet 20 mg PO DAILY oxycodone-acetaminophen 5-325 mg tablet 1 tab PO Q8H PRN (Reason: Pain (Scale Score 4-6)) desonide 0.05 % cream 1 applic topical BID acyclovir 400 mg tablet 400 mg PO BID carisoprodol 350 mg tablet 350 mg PO BID sildenafil (pulm.hypertension) 20 mg tablet See Rx Instructions PO .prn Rx Instructions: 1-3 tabs PO .prn duloxetine 60 mg capsule,delayed release(DR/EC) 60 mg PO DAILY lisinopril 10 mg tablet 10 mg PO DAILY gabapentin 300 mg capsule 900 mg PO BID ciprofloxacin HCl 500 mg tablet 500 mg PO BID Qty: 14 0RF Stand Alone Forms: Patient Portal/API
[2023-10-17] MEDS: LIDOCAINE 1% 20 ML INJ (03:01)
== END 2023-10-17 03:02 | disposition home or self-care (01) ==
PROVIDERS: Emergency Provider Emergency Medicine
DX: S01.01XA Laceration without foreign body of scalp, initial encounter (principal); W18.09XA Striking against other object with subsequent fall, initial encounter
CPT/HCPCS: 12002; 99282; 99283